=== PATIENT | male | born 1965 | race Caucasian/White ===

== ENCOUNTER 2025-06-16 19:42 | Inpatient (IN) | payer MEDICAID ==
[~2025-06-16] VITALS: Ht 177.8 cm; Wt 80.7 kg
[2025-06-16 20:35] LABS: PLATELET COUNT (AUTO) 236 K/uL (150-450); RED BLOOD CELL COUNT(AUTO) 5.25 MIL/uL (4.50-5.90); RED CELL DISTRIBUTION WIDTH 14.3 % (11.5-14.5); WHITE BLOOD COUNT (AUTO) 8.7 K/uL (4.5-11.0)
[2025-06-16 20:38] LABS: COVID AG,FIA SOURCE NASAL SWAB
[2025-06-16 20:43] LABS: APPEARANCE,URINE CLEAR (CLEAR); GLUCOSE, URINE (UA) NEGATIVE (NEGATIVE); LEUKOCYTE ESTERASE ,URINE NEGATIVE (NEGATIVE); NITRATE,URINE NEGATIVE (NEGATIVE); OCCULT BLOOD,URINE NEGATIVE (NEGATIVE); PH,URINE DRUG SCREEN 5.0 (5.0-8.0); SPECIFIC GRAVITIY, URINE 1.010 (1.003-1.030)
[2025-06-16 20:44] LABS: CALCIUM, TOTAL 8.1 mg/dL (8.8-10.5); CREATININE 0.83 mg/dL (0.60-1.30); GLOMERULAR FILTR. RATE CALC > 60 mL/min (>60); GLUCOSE,RANDOM 85 mg/dL (70-110); SODIUM SERUM 138 mmol/L (136-145); UREA NITROGEN, BLOOD 11 mg/dL (7-18)
[2025-06-16 20:48] LABS: ALCOHOL, BLOOD (SERUM) 216 mg/dL (0-10)
[2025-06-16 20:49] LABS: ASPARTATE AMINOTRANSFERASE 21 U/L (15-37); TOTAL PROTEIN, SERUM 7.2 g/dL (6.4-8.2)
[2025-06-16 20:51] LABS: ALCOHOL, URINE DRUG SCREEN POSITIVE (NEGATIVE); AMPHET/METH SCREEN,URINE NEGATIVE (NEGATIVE); BARBITURATE SCREEN, URINE NEGATIVE (NEGATIVE); CANNABINOID SCREEN,URINE NEGATIVE (NEGATIVE); COCAINE SCREEN,URINE NEGATIVE (NEGATIVE); METHADONE SCREEN, URINE NEGATIVE (NEGATIVE)
[2025-06-16 20:59] LABS: SARS-COV2 (COVID) ANTIGEN,FIA Negative (Negative)
[2025-06-17] MEDS ORDERED: ZOLPIDEM TARTRATE 10 MG TABLET PO PRN (02:00)
[2025-06-17 06:30] VITALS: O2SAT 96
[2025-06-17 08:19] VITALS: BP 136/86; PULSE 59; RESP 18; TEMP 97.3; O2SAT 98
[2025-06-17] MEDS ORDERED: ONDANSETRON 4 MG TABLET PO PRN (10:00)
[2025-06-17] MEDS ORDERED: MAGNESIUM HYDROXIDE SUSPENSION 30 ML UDCUP PO PRN (10:00)
[2025-06-17] MEDS ORDERED: BACITRACIN 28 GM OINTMENT TP PRN (10:00)
[2025-06-17] MEDS ORDERED: IBUPROFEN 600 MG TABLET PO PRN (10:00)
[2025-06-17] MEDS ORDERED: BENZOCAINE/MENTHOL [CEPACOL] LOZENGE PO PRN (10:00)
[2025-06-17] MEDS ORDERED: ALBUTEROL SULFATE HFA 90 MCG/PUFF 8 GM INHALER IH PRN (10:00)
[2025-06-17] MEDS ORDERED: MAG HYDROX/ALUMINUM HYD/SIMETH ES 30 ML SUSPENSION UDCUP PO PRN (10:00)
[2025-06-17] MEDS ORDERED: PETROLATUM,WHITE 28 GM JELLY TP PRN (10:00)
[2025-06-17] MEDS ORDERED: ACETAMINOPHEN 325 MG TABLET PO PRN (10:00)
[2025-06-17] MEDS ORDERED: OMEPRAZOLE 20 MG CAPSULE PO PRN (10:00)
[2025-06-17] MEDS ORDERED: DOCUSATE SODIUM 100 MG CAPSULE PO PRN (10:00)
[2025-06-17] MEDS ORDERED: LOPERAMIDE HCL 2 MG CAPSULE PO PRN (10:00)
[2025-06-17 13:00] VITALS: BP 131/74; PULSE 101; RESP 16; TEMP 97.8; O2SAT 100
[2025-06-17 20:17] VITALS: BP 133/67; PULSE 102; RESP 18; TEMP 98; O2SAT 99
[2025-06-18 08:03] VITALS: BP 127/68; PULSE 83; RESP 16; TEMP 97.5; O2SAT 98
[2025-06-18] MEDS: SERTRALINE HCL 50 MG TABLET PO SCH (09:15)
[2025-06-18 09:28] LABS: ASPARTATE AMINOTRANSFERASE 20 U/L (15-37); CALCIUM, TOTAL 8.2 mg/dL (8.8-10.5); CHOL/HDL RATIO 3.0 (4.2-7.3); CREATININE 1.00 mg/dL (0.60-1.30); GLOMERULAR FILTR. RATE CALC > 60 mL/min (>60); GLUCOSE,RANDOM 159 mg/dL (70-110); LDL CHOL (CALC.) 94 mg/dL (0-130); SODIUM SERUM 137 mmol/L (136-145); TOTAL PROTEIN, SERUM 6.8 g/dL (6.4-8.2); UREA NITROGEN, BLOOD 23 mg/dL (7-18)
[2025-06-18 20:04] VITALS: BP 130/90; PULSE 72; RESP 17; TEMP 97.7; O2SAT 99
[2025-06-19 08:03] VITALS: BP 135/81; PULSE 70; RESP 16; TEMP 97.4; O2SAT 99
[2025-06-19] MEDS ORDERED: SERT-158 PO (11:12)
== END 2025-06-19 13:37 | disposition home or self-care (01) | DRG 751 ==
LOC: EMS 19:42 → B3A 06-17 06:48
PROVIDERS: ADMIT Psychiatry & Neurology Psychiatry; ATTEND Psychiatry & Neurology Psychiatry
PROC: GZHZZZZ Group Psychotherapy (ICD-10-PCS; principal; 2025-06-17)
DX: F33.2 Major depressive disorder, recurrent severe without psychotic features (principal); F10.129 Alcohol abuse with intoxication, unspecified; T45.0X2A Poisoning by antiallergic and antiemetic drugs, intentional self-harm, initial encounter; Y90.7 Blood alcohol level of 200-239 mg/100 ml; K59.00 Constipation, unspecified; Z20.822 Contact with and (suspected) exposure to COVID-19; F41.9 Anxiety disorder, unspecified; G47.00 Insomnia, unspecified; Z79.899 Other long term (current) drug therapy; Z88.0 Allergy status to penicillin; M19.90 Unspecified osteoarthritis, unspecified site
CPT/HCPCS: 80048; 80053; 80061; 80076; 80307; 81003; 83036; 84439; 84443; 85025; 93005; 99285; G0480; G0481